=== PATIENT | female | born 1965 ===

== ENCOUNTER 2017-01-24 01:26 | Emergency (ER) | payer SELFPAY ==
[2017-01-24 01:26] VITALS: BMI 22.8
[2017-01-24 01:38] VITALS: BP 134/94; PULSE 91; RESP 16; TEMP 98.3; O2SAT 99
--- NOTE | 2017-01-24 02:01 | ED PDOC ---
Lower Extremity Pain/Injury Chief Complaint (Provider): left LE injury s/p fall History Per: Patient History/Exam Limitations: no limitations Onset/Duration Of Symptoms: Days (5 days) Current Symptoms Are (Timing): Still Present Severity: Moderate Pain Scale Rating Of: 6 Additional History Per: Patient Additional Complaint(s): 51 y/o F presenting s/p walking into a tree and falling while possibly intoxicated 5 days ago. Patient has a history of ETOH and pain med seeking behavior. Patient states taking percocet and tramadol at home for this injury but decided to come in today as the swelling became worse. Pain is moderate 8/ 10 intensity, alleviated with RICE treatment. Able to bear weight on injury. Denies f/c/n/v/cp/sob/abd pain. PMD: [facility] Attends pain Management [facility] - Hip Description Of Injury: Fell - Knee Description Of Injury: Fell, Struck Against Object, Other (walked into a tree while intoxicated) Alleviating Factor(s): Ice Therapy, Elevation - Ankle/Foot Description Of Injury: Fell, Struck Against Object Alleviating Factor(s): Ice Therapy, Elevation - Risk Factors DVT Risk Factors: Pos: None <Irving Ojeda F - Last Filed: 01/24/17 03:32> <Bryanna Pierre - Last Filed: 01/24/17 04:03> Chief Complaint (Nursing): Lower Extremity Problem/Injury Supervising Attending Note - Supervising Attending Note The Documented history was done by the: Physician Model Builder, Attending Physician The documented physical exam was done by the: Physician Model Builder, Attending Physician The documented procedures were done by the: Physician Model Builder, Attending Physician - Attestation: I have personally seen and examined this patient.: Yes I have fully participated in the care of the patient.: Yes I have reviewed all pertinent clinical information, including history, physical exam and plan: Yes <Bryanna Pierre - Last Filed: 01/24/17 04:03> Past Medical History Vital Signs: Last Vital Signs Temp 98.3 F 01/24/17 01:34 Pulse 91 H 01/24/17 01:34 Resp 16 01/24/17 01:34 BP 134/94 H 01/24/17 01:34 Pulse Ox 99 01/24/17 01:34 - Medical History PMH: Anxiety, Depression Denies: Diabetes, Hepatitis, HIV, HTN, Chronic Kidney Disease, Seizures, Sexually Transmitted Disease - Family History Family History: States: Unknown Family Hx - Immunization History Hx Tetanus Toxoid Vaccination: No Hx Influenza Vaccination: No Hx Pneumococcal Vaccination: No <Irving Ojeda - Last Filed: 01/24/17 03:32> Vital Signs: Last Vital Signs Temp 98.3 F 01/24/17 01:34 Pulse 91 H 01/24/17 01:34 Resp 16 01/24/17 01:34 BP 134/94 H 01/24/17 01:34 Pulse Ox 99 01/24/17 03:38 <Bryanna Pierre A - Last Filed: 01/24/17 04:03> - Home Medications Home Medications: Ambulatory Orders Medication Instructions Recorded DULoxetine [Cymbalta] 90 mg PO DAILY 04/24/16 Gabapentin [Neurontin] 800 mg PO TID 04/24/16 DULoxetine [Cymbalta] 30 mg PO DAILY #30 ecc 04/29/16 DULoxetine [Cymbalta] 60 mg PO DAILY #30 ecc 04/29/16 Gabapentin [Neurontin] 600 mg PO TID #90 tab 04/29/16 Naltrexone [Revia] 50 mg PO DAILY #30 tab 04/29/16 traZODone [Desyrel] 100 mg PO HS PRN #30 tab 04/29/16 Sulfamethoxazole/Trimethoprim 1 tab PO BID #14 tab 01/24/17 [Bactrim DS 800 mg-160 mg] - Allergies Allergies/Adverse Reactions: Allergies Allergy/AdvReac Type Severity Reaction Status Date / Time No Known Allergies Allergy Verified 01/24/17 01:34 Wells Criteria for PE - Wells Criteria for Pulmonary Embolism Clinical Signs and Symptoms of DVT: No Heart Rate >100: No Immobilization at least 3 days;Surgery previous 4 weeks: No Previous, objectively diagnosed PE or DVT: No Hemoptysis: No Malignancy w/treatment within 6 months, or palliative: No Total Score: 0 <Irving Ojeda F - Last Filed: 01/24/17 03:32> Review of Systems Constitutional: Negative for: Fever, Chills ENT: Negative for: Ear Pain Cardiovascular: Negative for: Chest Pain Respiratory: Negative for: Cough Gastrointestinal: Negative for: Nausea, Vomiting, Abdominal Pain Genitourinary Female: Negative for: Dysuria Musculoskeletal: Positive for: Leg Pain (left tibial pain) Skin: Positive for: Bruising (left anterior lower extremity) Neurological: Negative for: Weakness, Confusion, Dizziness <Irving Ojeda - Last Filed: 01/24/17 03:32> Physical Exam - Physical Exam Appears: Positive for: No Acute Distress Head Exam: Positive for: ATRAUMATIC Skin: Positive for: Warm, Dry Eye Exam: Positive for: EOMI, PERRL ENT: Positive for: Normal ENT Inspection Neck: Positive for: Normal Cardiovascular/Chest: Positive for: Regular Rate, Rhythm Respiratory: Positive for: Normal Breath Sounds Gastrointestinal/Abdominal: Positive for: Soft. Negative for: Tenderness Extremity: Positive for: Normal ROM, Swelling, Other (left LE bruising: tib/fib , ankle; bruising with skin break on left mid-allison). Negative for: Pedal Edema , Calf Tenderness Neurologic/Psych: Positive for: Alert, Oriented <Irving Ojeda - Last Filed: 01/24/17 03:32> - Laboratory Results Result Diagrams: 01/24/17 02:25 01/24/17 03:00 - ECG O2 Sat by Pulse Oximetry: 99 - Radiology X-Ray: Interpreted by Me, Viewed By Me X-Ray Interpretation: No Acute Disease - Progress ED Course And Treament: Left LE fall - VSSS, afebrile - XR tib/fib, ankle: no fracture visualized - toradol for pain and swelling - cbc, cmp: normocytic anemia, elevated LFTs, no leukocytosis - can start Bactrim PO for localized wound infection Condition: Re-examined, Improved <Irving Ojeda - Last Filed: 01/24/17 03:32> - Laboratory Results Result Diagrams: 01/24/17 02:25 01/24/17 03:00 <Bryanna Pierre - Last Filed: 01/24/17 04:03> Elliot Ankle Rules - Malleolar zone tenderness? Posterior edge or tip of lateral malleolus: No Posterior edge or tip of medial malleolus: No Inability to bear weight both immediately and in the ED: Yes - Midfoot zone tenderness? Base of 5th Metatarsal: No Navicular: No Inability to bear weight both immediately and in the ED: No <Irving Ojeda - Last Filed: 01/24/17 03:32> Disposition - Patient ED Disposition Is Patient to be Admitted: No - Disposition Disposition: Routine/Home Disposition Time: 03:35 <Irving Ojeda - Last Filed: 01/24/17 03:32> <Bryanna Pierre - Last Filed: 01/24/17 04:03> - Clinical Impression Clinical Impression: Alcohol abuse, Lower extremity injury - Disposition Referrals: [facility] [Outside] Condition: GOOD Additional Instructions: take antibiotics as directed follow up with PMD for anemia can take NSAIDS for pain and inflammation with food return to ER if fever, chills, increased LE pain Prescriptions: Sulfamethoxazole/Trimethoprim [Bactrim DS 800 mg-160 mg] 1 tab PO BID #14 tab Instructions: Wound Infection (ED) Print Language: TURKISH
[2017-01-24 03:08] LABS: HEMATOCRIT 30.2 % (34.0-47.0); MEAN CELL VOLUME 97.9 fl (81.0-99.0); MEAN CORPUSCULAR HEMOGLOBIN 33.3 pg (27.0-31.0); RED CELL DISTRIBUTION WIDTH 14.8 % (11.5-14.5); WHITE BLOOD COUNT 6.2 K/uL (4.8-10.8)
[2017-01-24 03:20] LABS: ALB/GLOB RATIO 1.7 (1.0-2.1); ALKALINE PHOSPHATASE 71 U/L (38-126); ALT/SGPT 57 U/L (9-52); AST/SGOT 84 U/L (14-36); BILIRUBIN,TOTAL 0.7 mg/dl (0.2-1.3); BLOOD UREA NITROGEN 18 mg/dl (7-17); CALCIUM 8.7 mg/dL (8.4-10.2); CARBON DIOXIDE 24 mmol/L (22-30); CHLORIDE 105 mmol/L (98-107); GFR AFRICAN-AMERICAN > 60; GLUCOSE,RANDOM 89 mg/dL (65-105); POTASSIUM 3.3 MMOL/L (3.6-5.0); SODIUM 141 mmol/l (132-148); TOTAL PROTEIN 7.5 G/DL (6.3-8.2)
--- NOTE | 2017-01-24 10:12 | RAD ---
PROCEDURE: Radiographs of the left tibia and fibula. HISTORY: trauma COMPARISON: Correlation made with concurrent radiographs of the left ankle TECHNIQUE: Frontal and lateral views obtained. FINDINGS: BONES: No fracture or destructive lesion. . Note is made of a small elliptical shaped sclerotic density within the proximal tibial metadiaphysis which probably represents an incidental bone island or osteoma. JOINT SPACES: Unremarkable. OTHER FINDINGS: There is mild localized soft pretibial soft tissue swelling at the level of the mid - - distal 1/3 of the tibia. . Few small soft tissue calcifications likely represent calcified go phleboliths. IMPRESSION: No acute fractures. Mild localized pretibial soft tissue swelling as above. Along the mid - distal 1/3
--- NOTE | 2017-01-24 10:13 | RAD ---
PROCEDURE: Left Ankle Radiographs. Two views of the left ankle performed. HISTORY: trauma COMPARISON: None FINDINGS: BONES: No evidence of acute displaced fracture nor dislocation. Osseous structures appear intact. Small plantar surface calcaneal enthesophyte. JOINTS: Normal. No osteoarthritis. Ankle mortise maintained. Talar dome intact SOFT TISSUES: There appears to be some very minor lateral soft tissue swelling Multiple tiny soft tissue calcifications likely representing calcified phleboliths. OTHER FINDINGS: None. IMPRESSION: No acute evidence of acute displaced fracture nor dislocation. . Minor lateral soft tissue swelling felt be present.
== END 2017-01-24 04:00 | disposition home or self-care (01) ==
LOC: H.ER 01:26
DX: S89.92XA Unspecified injury of left lower leg, initial encounter (principal); W19.XXXA Unspecified fall, initial encounter; Y92.89 Other specified places as the place of occurrence of the external cause; F10.129 Alcohol abuse with intoxication, unspecified
CPT/HCPCS: 73590; 73600; 80053; 85027; 96374; 99284; J1885

== ENCOUNTER 2017-02-09 10:21 | Emergency (ER) | payer BC ==
[2017-02-09 10:22] VITALS: BMI 22.8
[2017-02-09 10:36] VITALS: BP 99/71; PULSE 78; RESP 18; TEMP 97.8; O2SAT 96
--- NOTE | 2017-02-09 10:51 | ED PDOC ---
Lower Extremity Pain/Injury Time Seen by Provider: 02/09/17 10:36 Chief Complaint (Nursing): Lower Extremity Problem/Injury Chief Complaint (Provider): leg pain History Per: Patient Additional Complaint(s): 52-year-old female presents with persistent pain and swelling to left leg. She was seen in the middle of January and was diagnosed with abscess and was prescribed Bactrim. Infection has cleared but patient has residual swelling and pain to affected area. She has been taking tramadol which she takes for chronic right foot pain but this has not helped the left leg pain. She denies any recent trauma, denies fever or chills. Past Medical History Reviewed: Historical Data, Nursing Documentation, Vital Signs Vital Signs: Last Vital Signs Temp 97.8 F 02/09/17 10:35 Pulse 78 02/09/17 10:35 Resp 18 02/09/17 10:35 BP 99/71 L 02/09/17 10:35 Pulse Ox 96 02/09/17 10:35 - Medical History PMH: Anxiety, Depression, Chronic Pain (right foot pain) - Surgical History Surgical History: Hernia Repair Other surgeries: right foot surgery x 3, "reconstruction of uterus" - Family History Family History: States: No Known Family Hx - Living Arrangements Living Arrangements: With Family - Social History Current smoker - smoking cessation education provided: Yes Alcohol: Other (h/o abuse, no longer drinks) Drugs: Denies - Home Medications Home Medications: Ambulatory Orders Medication Instructions Recorded DULoxetine [Cymbalta] 90 mg PO DAILY 04/24/16 Gabapentin [Neurontin] 800 mg PO TID 04/24/16 DULoxetine [Cymbalta] 30 mg PO DAILY #30 ecc 04/29/16 DULoxetine [Cymbalta] 60 mg PO DAILY #30 ecc 04/29/16 Gabapentin [Neurontin] 600 mg PO TID #90 tab 04/29/16 Naltrexone [Revia] 50 mg PO DAILY #30 tab 04/29/16 traZODone [Desyrel] 100 mg PO HS PRN #30 tab 04/29/16 Sulfamethoxazole/Trimethoprim 1 tab PO BID #14 tab 01/24/17 [Bactrim DS 800 mg-160 mg] Diclofenac Epolamine [Flector] 1 patch TP BID PRN #60 patch 02/09/17 Nabumetone [Relafen] 500 mg PO BID #20 tab 02/09/17 - Allergies Allergies/Adverse Reactions: Allergies Allergy/AdvReac Type Severity Reaction Status Date / Time No Known Allergies Allergy Verified 02/09/17 10:32 Wells Criteria for PE - Wells Criteria for Pulmonary Embolism Clinical Signs and Symptoms of DVT: No P.E is #1 Diagnosis, or Equally Likely: No Heart Rate >100: No Immobilization at least 3 days;Surgery previous 4 weeks: No Previous, objectively diagnosed PE or DVT: No Hemoptysis: No Malignancy w/treatment within 6 months, or palliative: No Total Score: 0 Review of Systems ROS Statement: Except As Marked, All Systems Reviewed And Found Negative Constitutional: Negative for: Fever Musculoskeletal: Positive for: Other (pain and swelling to left leg) Physical Exam - Reviewed Nursing Documentation Reviewed: Yes Vital Signs Reviewed: Yes - Physical Exam Appears: Positive for: Well, Non-toxic, No Acute Distress Skin: Negative for: Rash Eye Exam: Positive for: Normal appearance, EOMI, PERRL Extremity: Positive for: Other (Contusion noted to left anterior mid allison, mildly tender to palpation, no erythema or warmth to affected area. No erythematous streaking, no calf tenderness) Neurologic/Psych: Positive for: Alert, Oriented - ECG O2 Sat by Pulse Oximetry: 96 Pulse Ox Interpretation: Normal Medical Decision Making Medical Decision Making: Impression: Contusion left leg Plan: IM toradol in ED Toradol did help the pain. Rx flector patch and relafen given for anti-inflammatory affect. Patient was instructed to ice and elevate affected area as much as possible. Patient has orthopedist that she sees, Dr. Vinay Puentes, and she states she will follow up with him in 2-3 days. Disposition - Clinical Impression Clinical Impression: Contusion of leg - Patient ED Disposition Is Patient to be Admitted: No Counseled Patient/Family Regarding: Diagnosis, Need For Followup, Rx Given - Disposition Referrals: Vinay Puentes DPM [[facility]] - Disposition: Routine/Home Disposition Time: 11:41 Condition: STABLE Additional Instructions: Apply ice and elevate affected area. Take prescription meds as directed. Follow- up with your orthopedist for further evaluation, Prescriptions: Diclofenac Epolamine [Flector] 1 patch TP BID PRN #60 patch PRN Reason: Pain, Moderate (4-7) Nabumetone [Relafen] 500 mg PO BID #20 tab Instructions: Contusion in Adults (ED)
== END 2017-02-09 12:27 | disposition home or self-care (01) ==
LOC: H.ER 10:21
DX: S80.12XA Contusion of left lower leg, initial encounter (principal); X58.XXXA Exposure to other specified factors, initial encounter
CPT/HCPCS: 96372; 99283; J1885

== ENCOUNTER 2017-09-02 20:25 | Emergency (ER) | payer MEDICAID ==
[2017-09-02 20:28] VITALS: RESP 16; O2SAT 98
--- NOTE | 2017-09-02 22:15 | ED PDOC ---
HPI: Psych/Substance Abuse Time Seen by Provider: 09/02/17 20:33 Chief Complaint (Nursing): Alcohol Ingestion Chief Complaint (Provider): Alcohol Ingestion History Per: Patient History/Exam Limitations: no limitations Onset/Duration Of Symptoms: Days (x1) Current Symptoms Are (Timing): Still Present Additional Complaint(s): 52 year old homeless female with a past medical history of alcoholism who presents to the ED with alcohol intoxication. Patient admits to drinking heavily today. Reports that she has a history of depression for which she takes Cymbalta. Denies suicidal or homicidal ideations. Also denies drug use or hallucinations. Patient has no complaints at this time. PMD: None Past Medical History Reviewed: Historical Data, Nursing Documentation, Vital Signs Vital Signs: Last Vital Signs Temp 97.6 F 09/02/17 20:28 Pulse 69 09/02/17 20:28 Resp 16 09/02/17 20:28 BP 121/98 H 09/02/17 20:28 Pulse Ox 98 09/02/17 20:28 - Medical History PMH: No Chronic Diseases - Surgical History Surgical History: No Surg Hx - Family History Family History: States: Unknown Family Hx - Social History Current smoker - smoking cessation education provided: Yes Alcohol: > 2 Drinks/Day Drugs: Denies - Allergies Allergies/Adverse Reactions: Allergies Allergy/AdvReac Type Severity Reaction Status Date / Time Unobtainable Allergy Verified 09/02/17 20:28 Review of Systems ROS Statement: Except As Marked, All Systems Reviewed And Found Negative (as per HPI) - ECG O2 Sat by Pulse Oximetry: 98 (RA) Pulse Ox Interpretation: Normal Medical Decision Making Medical Decision Making: Initial Impression: Alcohol intoxication Initial Plan: --Alcohol serum --Glucose, Blood, POC --Reevaluation Scribe Attestation: Documented by Gio Baez, acting as a scribe for Julia Souza MD. Provider Scribe Attestation: All medical record entries made by the Scribe were at my direction and personally dictated by me. I have reviewed the chart and agree that the record accurately reflects my personal performance of the history, physical exam, medical decision making, and the department course for this patient. I have also personally directed, reviewed, and agree with the discharge instructions and disposition. Disposition - Disposition
--- NOTE | 2017-09-03 00:18 | ED PDOC ---
- ECG O2 Sat by Pulse Oximetry: 98 (RA) Pulse Ox Interpretation: Normal Medical Decision Making Medical Decision Making: Time: 00:00 --Patient signed out to me pending sobriety and reevaluation. At 5:30 AM patient is awake and alert with steady gait and fluent speech. Patient is stable for discharge home Dx Alcohol Intoxication Disposition - Clinical Impression Clinical Impression: Alcohol abuse with intoxication - POA Present On Arrival: None - Disposition Disposition: Routine/Home Disposition Time: 05:30 Condition: STABLE Instructions: Alcohol Intoxication (ED) Forms: [facility] (Lao)
[2017-09-03 02:32] VITALS: BP 131/76; PULSE 89; TEMP 97.3
== END 2017-09-03 05:55 | disposition home or self-care (01) ==
LOC: MERGE 20:25 → H.ER 20:25 → EDBD 20:25 → H.ER 09-03 05:55
DX: F10.129 Alcohol abuse with intoxication, unspecified (principal); F17.200 Nicotine dependence, unspecified, uncomplicated; Z59.0 Homelessness

== ENCOUNTER 2017-09-03 06:56 | Emergency (ER) | payer MEDICAID ==
[2017-09-03 07:18] VITALS: BMI 23.6
[2017-09-03] MEDS ORDERED: Sodium Chloride 0.9% 1,000 ML IV STA (07:25)
--- NOTE | 2017-09-03 07:37 | ED PDOC ---
HPI: Chest Pain Time Seen by Provider: 09/03/17 07:20 Chief Complaint (Nursing): Dizziness/Lightheaded Chief Complaint (Provider): Dizziness/Lightheaded History Per: Patient History/Exam Limitations: no limitations Onset/Duration Of Symptoms: Mins (prior to arrival) Current Symptoms Are (Timing): Still Present Additional Complaint(s): 52 year old female who presents to the emergency department with a complaint of chest tightness associated with weakness prior to arrival. Patient was just discharged from ED for alcohol intoxication and stated she felt onset of symptoms while in lobby of the hospital. PMD: none provided Past Medical History Reviewed: Historical Data, Nursing Documentation, Vital Signs Vital Signs: Last Vital Signs Temp 97.6 F 09/03/17 12:04 Pulse 89 09/03/17 12:04 Resp 18 09/03/17 12:04 BP 116/78 09/03/17 12:04 Pulse Ox 98 09/03/17 12:04 - Medical History PMH: No Chronic Diseases - Surgical History Surgical History: No Surg Hx - Family History Family History: States: Unknown Family Hx - Social History Current smoker - smoking cessation education provided: No Alcohol: Occasional Drugs: Denies - Home Medications Home Medications: Ambulatory Orders Medication Instructions Recorded DULoxetine [Cymbalta] 90 mg PO DAILY ecc 06/29/17 Gabapentin [Neurontin] 600 mg PO QID tab 06/29/17 Metoprolol Succinate [Toprol XL] 25 mg PO BRK tab 06/29/17 traZODone [Desyrel] 100 mg PO HS PRN tab 06/29/17 - Allergies Allergies/Adverse Reactions: Allergies Allergy/AdvReac Type Severity Reaction Status Date / Time No Known Allergies Allergy Verified 09/02/17 18:40 Review of Systems ROS Statement: Except As Marked, All Systems Reviewed And Found Negative Constitutional: Positive for: Weakness Cardiovascular: Positive for: Chest Pain (tightness) Physical Exam - Reviewed Nursing Documentation Reviewed: Yes Vital Signs Reviewed: Yes - Physical Exam Appears: Positive for: No Acute Distress Head Exam: Positive for: ATRAUMATIC, NORMAL INSPECTION, NORMOCEPHALIC Skin: Positive for: Normal Color. Negative for: Pallor Cardiovascular/Chest: Positive for: Regular Rate, Rhythm, Chest Non Tender Respiratory: Positive for: Normal Breath Sounds. Negative for: Decreased Breath Sounds, Wheezing, Respiratory Distress Gastrointestinal/Abdominal: Positive for: Normal Exam, Soft. Negative for: Tenderness Extremity: Positive for: Normal ROM (upper/lower). Negative for: Deformity Neurologic/Psych: Positive for: Alert (x3), Gait (unsteady), Other (slurred speech) - Laboratory Results Result Diagrams: 09/03/17 08:01 09/03/17 08:01 - ECG O2 Sat by Pulse Oximetry: 100 (RA) Pulse Ox Interpretation: Normal Medical Decision Making Medical Decision Making: Initial Impression: Chest pain; alcohol intoxication Initial Plan: * EKG * Alcohol serum * BMP * Drug screen, urine * Troponin I * Urine * CBC * NS 1,000ml per 1,000mls/hr ____ Time: 800 --Toxicology: alcohol level currently at 190 compared to alcohol level: 395 at 2137 last night in ED. Scribe Attestation: Documented by Herminia Workman, acting as a scribe for Allyssa Dominguez MD. Provider Scribe Attestation: All medical record entries made by the Scribe were at my direction and personally dictated by me. I have reviewed the chart and agree that the record accurately reflects my personal performance of the history, physical exam, medical decision making, and the department course for this patient. I have also personally directed, reviewed, and agree with the discharge instructions and disposition. patient has 2 sets of normal troponin. Will discharge. Disposition - Clinical Impression Clinical Impression: Chest pain, Alcohol intoxication - Patient ED Disposition Is Patient to be Admitted: No Doctor Will See Patient In The: Office Counseled Patient/Family Regarding: Diagnosis, Need For Followup - Disposition Disposition: Routine/Home Disposition Time: 12:20 Condition: STABLE Instructions: Chest Pain (ED), Alcohol Intoxication (ED) Forms: [facility] (Hebrew) - POA Present On Arrival: None
[2017-09-03 08:05] LABS: BASO # 0.1 K/uL (0.0-0.2); BASO % 0.7 % (0.0-2.0); EOS # 0.1 K/uL (0.0-0.7); EOS % 1.2 % (0.0-4.0); HEMOGLOBIN 12.7 g/dL (12.0-16.0); LYMPH # 1.7 K/uL (1.0-4.3); LYMPH % 18.3 % (20.0-40.0); MEAN CELL VOLUME 96.9 fl (81.0-99.0); MEAN CORPUSCULAR HEMOGLOBIN 32.3 pg (27.0-31.0); MEAN CORPUSCULAR HGB CONC 33.3 g/dL (33.0-37.0); MEAN PLATELET VOLUME 8.3 fl (7.2-11.7); MONO # 0.3 K/uL (0.0-0.8); NEUT # 7.2 K/uL (1.8-7.0); NEUT % 76.8 % (50.0-75.0); RBC 3.93 Mil/uL (3.80-5.20); RED CELL DISTRIBUTION WIDTH 14.5 % (11.5-14.5); WHITE BLOOD COUNT 9.3 K/uL (4.8-10.8)
[2017-09-03 08:48] LABS: BLOOD UREA NITROGEN 23 mg/dl (7-17); CALCIUM 9.1 mg/dL (8.4-10.2); GFR AFRICAN-AMERICAN > 60; GFR NON-AFRICAN AMERICAN > 60
[2017-09-03 09:21] LABS: BARBITURATES, UR NEGATIVE (NEGATIVE); BENZODIAZEPINES, UR NEGATIVE (NEGATIVE); OPIATES, UR NEGATIVE (NEGATIVE); PHENCYCLIDINE, UR NEGATIVE (NEGATIVE)
[2017-09-03 12:05] VITALS: RESP 18
[2017-09-03 12:50] VITALS: BP 126/78; PULSE 78; TEMP 97; O2SAT 98
--- NOTE | 2017-09-03 18:07 | CARD ---
APPROVED REPORT EKG Measurement Heart [id number] <Conclusion> Normal sinus rhythm Normal ECG
== END 2017-09-03 13:12 | disposition home or self-care (01) ==
LOC: H.ER 06:56 → MERGE 06:56 → H.ER 13:12
DX: F10.129 Alcohol abuse with intoxication, unspecified (principal); Y90.8 Blood alcohol level of 240 mg/100 ml or more
CPT/HCPCS: 80048; 80320; 80324; 80345; 80346; 80349; 80353; 80358; 80361; 83992; 84484; 85025; 93005; 99284; J7040